=== PATIENT | male | born 1985 | race Caucasian/White ===

== ENCOUNTER 2023-05-10 20:31 | Emergency (ER) | payer OTHER, SELFPAY ==
[2023-05-10 20:32] VITALS: BP 128/94; PULSE 98; RESP 16; TEMP 37.1; O2SAT 95
--- NOTE | 2023-05-10 20:33 | ED.SKABFB ---
HPI - Skin/Abscess/Foreign Bdy General Chief complaint: Skin/Abscess/Foreign Body Stated complaint: Skin/Abscess/Foreign Body Source: patient Mode of arrival: ambulatory Limitations: no limitations History of Present Illness HPI narrative: 37-year-old male a history of pain medication use, bipolar, hypertension presents to the ER with a 3 day history -- 4 cm painful swelling in front of the right ear. He had a similar swelling 3 years ago secondary to cellulitis / abscess which resolved with oral antibiotics. no fever or chills MD complaint: abscess/boil Onset (ago): day(s) ( started 3 days ago) Tetanus up to date: no Location: face Severity: moderate Quality: aching Pain Consistency: constant Relieving factors: none Exacerbating factors: none Associated symptoms: denies other symptoms Treatments prior to arrival: none Related Data Home Medications Medication Instructions Recorded Confirmed buprenorphine 8 mg-naloxone 2 mg 1 tablet sublingual TID 05/10/23 05/10/23 sublingual tablet buspirone 7.5 mg tablet 7.5 mg PO BID 05/10/23 05/10/23 lisinopril 10 mg tablet 10 mg PO DAILY 05/10/23 05/10/23 quetiapine 50 mg tablet 50 mg PO HS 05/10/23 05/10/23 Allergies Allergy/AdvReac Type Severity Reaction Status Date / Time Penicillins Allergy Unknown Verified 05/10/23 20:39 Review of Systems Review of Systems: All systems reviewed & are unremarkable except as noted in HPI and below Constitutional: Constitutional: Reports as per HPI and Reports no additional constitutional complaints Eyes: Eyes: Reports as per HPI and Reports no additional eye complaints ENT: Reports system reviewed and no additional complaints, except as documented and Reports as per HPI Cardiovascular: Cardiovascular: Reports as per HPI and Reports no additional cardiovascular complaints Respiratory: Respiratory: Reports as per HPI and Reports no additional respiratory complaints Gastrointestinal: Gastrointestinal: Reports as per HPI and Reports no additional gastrointestinal complaints Genitourinary: Genitourinary: Reports no additional male genitourinary complaints and Reports as per HPI Musculoskeletal: Musculoskeletal: Reports no additional musculoskeletal complaints and Reports as per HPI Integumentary/Breasts: Comments: 4 cm cutaneous swelling in front of the right ear. This is warm to touch and painful on palpation Neurologic: Reports system reviewed and no additional complaints, except as documented and Reports as per HPI Psychiatric: Psychiatric: Reports no additional psychiatric complaints and Reports as per HPI Endocrine: Endocrine: Reports no additional endocrine complaints and Reports as per HPI Hematologic/Lymphatic: Hematologic/Lymphatic: Reports no additional hematologic/lymphatic complaints and Reports as per HPI Allergic/Immunologic: Allergic/Immunologic: Reports no additional allergic/immunologic complaints and Reports as per HPI [facility] Past Medical History Medical History (Updated 05/10/23 @ 22:17 by Ehsan Escamilla MD) Bipolar 2 disorder Hypertension Exam Const: General: healthy appearing and no acute distress Nutritional Appearance: well nourished Orientation/consciousness: patient oriented x3 Limitations: no limitations HENMT: Head: normal to inspection Ears: external ears normal Face/Nose/Sinus: Normal external nose present Face and sinus: normal facial exam Mouth: Yes Normal oral and palatal mucosa present Throat: posterior oropharynx normal Eyes: Conjunctivae: conjunctivae normal Pupils: Equal, round and reactive pupils present EOM: EOMs intact bilaterally Direct Ophthalmoscopy: no photophobia Neck: Neck: normal visual inspection, no lymphadenopathy and no meningeal signs Chest: Chest palpation & inspection: normal inspection of the chest Resp: Effort & Inspection: normal respiratory effort Auscultation: clear to auscultation bilaterally Cardio: Rate: regular rate Rhythm: regular
[2023-05-10 21:54] LABS: Basophils Absolute Auto 0.04 K/mm3 (0.00-0.10); Basophils Percent Auto 0.5 % (0.0-1.0); Eosinophils Absolute Auto 0.15 K/mm3 (0.02-0.50); Eosinophils Percent Auto 1.8 % (1.0-6.0); Hematocrit 40.1 % (40.0-54.0); Hemoglobin 13.5 g/dL (14.0-18.0); Immature Granulocyte Absolute 0.02 K/mm3 (0.00-0.00); Immature Granulocyte Percent A 0.2 % (0.0-0.0); Lymphocytes Absolute Auto 2.69 K/mm3 (1.10-4.50); Lymphocytes Percent Auto 31.9 % (18.0-42.0); Mean Corpuscular HGB Conc 33.7 g/dL (32.0-36.0); Mean Corpuscular Hemoglobin 30.3 pg (27.0-31.0); Mean Corpuscular Volume 90.1 fL (78.0-102.0); Monocytes Absolute Auto 0.52 K/mm3 (0.10-0.90); Monocytes Percent Auto 6.2 % (2.0-11.0); Neutrophils Percent Auto 59.4 % (50.0-70.0); Platelet Count Result 261 K/mm3 (150-420); Red Blood Count 4.45 M/mm3 (4.70-6.10); Red Cell Distribution Width 12.1 % (11.6-14.4); White Blood Count 8.4 K/mm3 (4.8-10.8)
[2023-05-10 22:09] LABS: Alanine Aminotransferase 13 U/L (16-63); Albumin Level 3.7 g/dL (3.4-5.0); Alkaline Phosphatase 55 U/L (46-116); Anion Gap 10 mmol/L (8-16); Aspartate Amino Transferase 66 U/L (15-37); Bilirubin,Total 0.3 mg/dL (0.00-1.00); Blood Urea Nitrogen 26 mg/dL (7-18); Calcium 8.7 mg/dL (8.5-10.1); Carbon Dioxide 27 mmol/L (21-32); Chloride 104 mmol/L (98-108); Estimated CRCL calculation 108 ml/min; Estimated Glomerular Filt Rate > 60; Glucose 94 mg/dL (70-99); Osmolality Calculated 296 mOsm/kg (285-295); Potassium 3.8 mmol/L (3.5-5.1); Sodium 141 mmol/L (136-145); Total Protein 6.9 g/dL (6.4-8.2)
[2023-05-10] MEDS: CLINDAMYCIN HCL 150 MG CAP 300 MG PO (22:25)
[2023-05-10 22:28] VITALS: BP 124/86; PULSE 66; RESP 16; TEMP 36.6; O2SAT 96
== END 2023-05-10 22:28 | disposition home or self-care (01) ==
PROVIDERS: Emergency Provider Internal Medicine Critical Care Medicine
DX: L03.211 Cellulitis of face (principal); F31.9 Bipolar disorder, unspecified; I10 Essential (primary) hypertension; Z79.899 Other long term (current) drug therapy
CPT/HCPCS: 36415; 80053; 85025; 99283; A9270

== ENCOUNTER 2023-05-29 07:31 | Emergency (ER) | payer OTHER, SELFPAY ==
--- NOTE | ~2023-05-29 | CT_ITS ---
EXAMINATION: CT brain wo con DATE: 05/29/2023 08:06 INDICATION: 2 episodes of seizure TECHNIQUE: Computed tomography (CT) of the head was performed without intravenous contrast. Sagittal and coronal reconstructions were performed. The mA was adjusted according to patient size. Iterative reconstruction technique was employed. The dose-length product was 605.33 mGy-cm. COMPARISON: None FINDINGS: No acute intracranial hemorrhage, acute infarction or abnormal extra axial fluid collection. Ventricl es are normal and symmetric. No mass/mass effect. The orbits, paranasal sinuses and mastoid air cells are normal. IMPRESSION: 1. Normal head CT. Reviewed, dictated and finalized at location A. IMPRESSION: 1. Normal head CT.
--- NOTE | 2023-05-29 07:33 | ED.SEIZURE ---
HPI - Seizure General Chief Complaint: Seizure Stated Complaint: seizure Time Seen by Provider: 05/29/23 07:32 Source: patient Mode of arrival: ambulatory Limitations: no limitations History of Present Illness HPI Narrative: 38 year old male presents to the Emergency Department complaining of seizure. Patient states last night he had an episode where he does not remember for about 5 minutes. States his stated he tensed up and had some shaking. He states he had another similar episode this morning. States he has a frontal headache and some blurry vision. He denies any incontinence. Denies biting tongue or any other injury. Denies any history of seizures. Denies any alcohol or drug use. History of substance abuse in past, but has not been taking Suboxone since October. Denies chest pain, shortness of breath, nausea, vomiting, diarrhea, fever, cough, congestion. 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 employment, either self-employed or otherwise?: No Related Data Home Medications Medication Instructions Recorded Confirmed lisinopril 10 mg tablet 10 mg PO DAILY 05/10/23 05/29/23 quetiapine 50 mg tablet 50 mg PO HS 05/10/23 05/29/23 Allergies Allergy/AdvReac Type Severity Reaction Status Date / Time Penicillins Allergy Unknown Verified 05/29/23 07:33 Review of Systems Review of Systems: All systems reviewed & are unremarkable except as noted in HPI and below Constitutional: Constitutional: Reports as per HPI, Reports no additional constitutional complaints, Denies chills, Denies fatigue, Denies fever(s) and Denies weakness Eyes: Eyes: Reports as per HPI and Reports change in vision Comments: some blurry vision ENT: Reports system reviewed and no additional complaints, except as documented Cardiovascular: Cardiovascular: Reports as per HPI and Reports no additional cardiovascular complaints Respiratory: Respiratory: Reports as per HPI and Reports no additional respiratory complaints Gastrointestinal: Gastrointestinal: Reports as per HPI and Reports no additional gastrointestinal complaints Genitourinary: Genitourinary: Reports no additional male genitourinary complaints Musculoskeletal: Musculoskeletal: Reports no additional musculoskeletal complaints Integumentary/Breasts: Skin/Breast: Reports system reviewed and no additional complaints, except as docu Neurologic: Reports system reviewed and no additional complaints, except as documented, Reports as per HPI and Reports headache(s) Psychiatric: Psychiatric: Reports no additional psychiatric complaints Endocrine: Endocrine: Reports no additional endocrine complaints Hematologic/Lymphatic: Hematologic/Lymphatic: Reports no additional hematologic/lymphatic complaints Allergic/Immunologic: Allergic/Immunologic: Reports no additional allergic/immunologic complaints PMFSH Past Medical History Medical History Bipolar 2 disorder Hypertension Exam Const: General: healthy appearing Nutritional Appearance: well nourished Orientation/consciousness: patient oriented x3 Limitations: no limitations HENMT: Head: normal to inspection Ears: external ears normal Face/Nose/Sinus: Normal external nose present Face and sinus: normal facial exam Mouth: Yes Normal oral and palatal mucosa present Teeth and gingiva: dentition normal Eyes: Conjunctivae: conjunctivae normal Pupils: Equal, round and reactive pupils present EOM: EOMs intact bilaterally Direct Ophthalmoscopy: no photophobia Neck: Neck: normal visual inspection and no meningeal signs Chest: Chest palpation & inspection:
[2023-05-29 07:34] VITALS: BP 146/85; PULSE 98; RESP 17; TEMP 36.9; O2SAT 97
[2023-05-29 08:00] VITALS: BP 141/89; PULSE 91; RESP 17; O2SAT 95
[2023-05-29 08:00] LABS: Appearance Urine Clear (Clear); Basophils Absolute Auto 0.06 K/mm3 (0.00-0.10); Basophils Percent Auto 0.8 % (0.0-1.0); Bilirubin Urine Negative (Negative); Blood Urine Negative (Negative); Color Urine Yellow (Yellow); Eosinophils Absolute Auto 0.25 K/mm3 (0.02-0.50); Eosinophils Percent Auto 3.4 % (1.0-6.0); Glucose Urine UA Negative (Negative); Hematocrit 45.3 % (40.0-54.0); Hemoglobin 14.9 g/dL (14.0-18.0); Immature Granulocyte Absolute 0.02 K/mm3 (0.00-0.00); Immature Granulocyte Percent A 0.3 % (0.0-0.0); Ketones Urine 1+ (Negative); Leukocyte Esterase Ur Negative (Negative); Lymphocytes Percent Auto 40.2 % (18.0-42.0); Mean Corpuscular HGB Conc 32.9 g/dL (32.0-36.0); Mean Corpuscular Hemoglobin 31.2 pg (27.0-31.0); Mean Corpuscular Volume 94.8 fL (78.0-102.0); Mean Platelet Volume 8.9 fl (8.7-11.0); Monocytes Absolute Auto 0.56 K/mm3 (0.10-0.90); Monocytes Percent Auto 7.5 % (2.0-11.0); Neutrophils Absolute Auto 3.6 K/mm3 (1.7-7.2); Neutrophils Percent Auto 47.8 % (50.0-70.0); Nitrate Urine Negative (Negative); Platelet Count Result 297 K/mm3 (150-420); Protein Urine Negative (Negative); Red Blood Count 4.78 M/mm3 (4.70-6.10); Red Cell Distribution Width 13.3 % (11.6-14.4); Specific Grav Ur 1.025 (1.010-1.020); Urobilinogen Urine 0.2 mg/dL (0.2-1.0); White Blood Count 7.5 K/mm3 (4.8-10.8)
[2023-05-29 08:07] LABS: Add Urine Microscopic? YES; Bacteria Urine Trace /hpf; Mucus Urine Moderate /lpf; RBC Urine None seen /hpf (0-2); WBC Urine 0-3 /hpf (0-3)
[2023-05-29 08:13] LABS: Amphetamine Screen Urine Negative (Negative); Barbiturate Screen Urine Negative (Negative); Benzodiazepines Screen Urine Negative (Negative); Cannabinoid Screen Urine Negative (Negative); Cocaine Screen Urine Positive (Negative); Methadone Screen Urine Negative (Negative); Opiate Screen Urine Negative (Negative); Phencyclidine Screen Urine Negative (Negative)
[2023-05-29 08:17] LABS: Alanine Aminotransferase 20 U/L (16-63); Albumin Level 3.5 g/dL (3.4-5.0); Alkaline Phosphatase 59 U/L (46-116); Anion Gap 9 mmol/L (8-16); Aspartate Amino Transferase 14 U/L (15-37); Bilirubin,Total 0.4 mg/dL (0.00-1.00); Blood Urea Nitrogen 13 mg/dL (7-18); Calcium 8.7 mg/dL (8.5-10.1); Carbon Dioxide 30 mmol/L (21-32); Chloride 102 mmol/L (98-108); Creatine Kinase 137 U/L (39-308); Estimated Glomerular Filt Rate > 60; Glucose 154 mg/dL (70-99); Osmolality Calculated 295 mOsm/kg (285-295); Potassium 3.6 mmol/L (3.5-5.1); Sodium 141 mmol/L (136-145); Total Protein 6.8 g/dL (6.4-8.2)
[2023-05-29 08:22] LABS: Lactic Acid Reflex 1.7 mmol/L (0.4-2.0)
[2023-05-29 08:30] VITALS: BP 128/73; PULSE 90; RESP 17; O2SAT 95
[2023-05-29 09:00] VITALS: BP 136/74; PULSE 84; RESP 17; O2SAT 95
[2023-05-29 09:16] VITALS: BP 125/72; PULSE 90; RESP 17; TEMP 36.9; O2SAT 95
== END 2023-05-29 09:16 | disposition home or self-care (01) ==
PROVIDERS: Emergency Provider Emergency Medicine
DX: R56.9 Unspecified convulsions (principal); F14.10 Cocaine abuse, uncomplicated; I10 Essential (primary) hypertension
CPT/HCPCS: 36415; 70450; 80053; 80307; 81001; 82550; 83605; 83735; 85025; 99284

== ENCOUNTER 2024-01-02 06:33 | Emergency (ER) | payer OTHER, SELFPAY ==
[2024-01-02 06:35] VITALS: BP 163/116; PULSE 109; RESP 20; TEMP 37.1; O2SAT 97
--- NOTE | 2024-01-02 06:56 | ECG_ITS ---
Measurements Intervals [place] Rate: 78 P: 2 HI: 107 QRS: 88 QRSD: 98 T: 12 QT: 362 QTc: 413 Interpretive Statements SINUS RHYTHM WITH SINUS ARRHYTHMIA WITH SHORT HI INTERVAL MINIMAL VOLTAGE CRITERIA FOR LVH, CONSIDER NORMAL VARIANT [MEETS CRITERIA IN ONE OF: R(aVL), S(V1), R(V5), R(V5/V6)+S(V1)] BORDERLINE ECG NO PREVIOUS ECG AVAILABLE FOR COMPARISON Electronically Signed On 01-02-2024 7:20:03 CDT by Kevan Carballo M.D.
--- NOTE | 2024-01-02 06:58 | ED.GENADULT ---
HPI - General Adult General Chief complaint: Nausea/Vomiting/Diarrhea <Emile Sykes DO - Last Filed: 01/02/24 07:04> Stated complaint: n/v/d <Emile Sykes DO - Last Filed: 01/02/24 07:04> Time Seen by Provider: 01/02/24 06:48 <Emile Sykes DO - Last Filed: 01/02/24 07:04> History of Present Illness HPI narrative: Fidel is a 38M with a PMH of HTN, bipolar and polysubstance abuse that presented to the ED with concerns of withdrawal and possible food poisoning. He was taking large amounts of fentanyl until 4 days ago, took cocaine yesterday and used MJ today. Since he stopped using opioids he has had worsening body aches, fatigue, but he claims he has not slept in 3 days. He also reports a lot of nausea and non-bloody vomit and watery diarrhea. He was in an inpatient treatment facility a few days ago and thinks he ate bad food. He reports the nausea, vomiting and diarrhea are not usually a part of his withdrawals. <Emile Sykes DO - Last Filed: 01/02/24 07:04> Related Data Home medications: Home Medications Medication Instructions Recorded Confirmed lisinopril 10 mg tablet 10 mg PO DAILY 05/10/23 01/02/24 quetiapine 50 mg tablet 50 mg PO HS 05/10/23 01/02/24 <Emile Sykes DO - Last Filed: 01/02/24 07:04> Allergies/adverse reactions: Allergies Allergy/AdvReac Type Severity Reaction Status Date / Time Penicillins Allergy Unknown Verified 05/29/23 07:33 <Emile Sykes DO - Last Filed: 01/02/24 07:04> Review of Systems Review of Systems: All systems reviewed & are unremarkable except as noted in HPI and below <Emile Sykes DO - Last Filed: 01/02/24 07:04> [facility] Past Medical History Medical History: Medical History Bipolar 2 disorder Hypertension <Emile Sykes DO - Last Filed: 01/02/24 07:04> Exam Const: General: cooperative, healthy appearing, comfortable, no acute distress, well developed, alert, awake and Physically active <Emile Sykes DO - Last Filed: 01/02/24 07:04> Orientation/consciousness: oriented to person, oriented to place and oriented to time <Emile Sykes DO - Last Filed: 01/02/24 07:04> HENMT: Head: normal to inspection, normocephalic and atraumatic <Emile Sykes DO - Last Filed: 01/02/24 07:04> Ears: hearing grossly normal bilaterally and external ears normal <Emile Sykes DO - Last Filed: 01/02/24 07:04> Face/Nose/Sinus: Normal external nose present <Emile Sykes DO - Last Filed: 01/02/24 07:04> Eyes: General: appearance normal, both eyes and all related structures <Emile Sykes DO - Last Filed: 01/02/24 07:04> Periorbital: periorbital findings normal <Emile Sykes DO - Last Filed: 01/02/24 07:04> Sclera: sclerae normal <Emile Sykes DO - Last Filed: 01/02/24 07:04> Pupils: Equal, round and reactive pupils present <Emile Sykes DO - Last Filed: 01/02/24 07:04> Neck: Neck: normal visual inspection <Emile Sykes DO - Last Filed: 01/02/24 07:04> Chest: Chest palpation & inspection: normal inspection of the chest <Emile Sykes DO - Last Filed: 01/02/24 07:04> Resp: Effort & Inspection: normal respiratory effort, able to speak in complete sentences and no respiratory distress <Emile Sykes DO - Last Filed: 01/02/24 07:04> Auscultation: clear to auscultation bilaterally <Emile Sykes DO - Last Filed: 01/02/24 07:04> Cardio: Jugular venous distension: no JVD <Emile Sykes, DO - Last Filed: 01/02/24 07:04> Rate: regular rate <Emile Sykes DO - Last Filed: 01/02/24 07:04> Rhythm: regular rhythm <Emile Sykes DO - Last Filed: 01/02/24 07:04> GI: Inspection: normal to inspection <Emile Sykes DO - Last Filed: 01/02/24 07:04> GI Palp: Yes Soft to palpation <Emile Sykes DO - Last Filed: 01/02/24 07:04> Auscultation: normal bowel sounds <
[2024-01-02 07:10] VITALS: BP 159/88; PULSE 88; RESP 18; TEMP 37; O2SAT 99
[2024-01-02] MEDS: LORazepam INJ (*CRX) 2 MG/ML VIAL 1 MG IV PUSH (07:12)
[2024-01-02] MEDS: SODIUM CHLORIDE 0.9% IV 1,000 ML 999 ML IV CONT (07:12)
[2024-01-02] MEDS: ONDANSETRON INJ 4 MG/2 ML VIAL IV PUSH (07:12)
[2024-01-02 07:13] LABS: Basophils Absolute Auto 0.03 K/mm3 (0.00-0.10); Basophils Percent Auto 0.3 % (0.0-1.0); Hemoglobin 14.8 g/dL (14.0-18.0); Immature Granulocyte Absolute 0.04 K/mm3 (0.00-0.00); Immature Granulocyte Percent A 0.3 % (0.0-0.0); Lymphocytes Absolute Auto 1.62 K/mm3 (1.10-4.50); Lymphocytes Percent Auto 14.1 % (18.0-42.0); Mean Corpuscular HGB Conc 31.5 g/dL (32-36); Mean Corpuscular Hemoglobin 28.6 pg (27.0-31.0); Mean Corpuscular Volume 90.7 fL (78.0-102.0); Mean Platelet Volume 8.8 fl (8.7-11.0); Monocytes Absolute Auto 0.63 K/mm3 (0.10-0.90); Monocytes Percent Auto 5.5 % (2.0-11.0); Neutrophils Absolute Auto 9.17 K/mm3 (1.70-7.20); Neutrophils Percent Auto 79.8 % (50.0-70.0); Platelet Count Result 457 K/mm3 (150-420); Red Blood Count 5.18 M/mm3 (4.70-6.10); Red Cell Distribution Width 13.3 % (11.6-14.4); White Blood Count 11.5 K/mm3 (4.8-10.8)
[2024-01-02 07:44] LABS: Alanine Aminotransferase 34 U/L (16-63); Alkaline Phosphatase 54 U/L (46-116); Anion Gap 11 mmol/L (4-12); Aspartate Amino Transferase 18 U/L (15-37); Bilirubin,Total 0.7 mg/dL (0.00-1.00); Blood Urea Nitrogen 21 mg/dL (7-18); Calcium 9.1 mg/dL (8.5-10.1); Carbon Dioxide 29 mmol/L (21-32); Chloride 103 mmol/L (98-108); Estimated CRCL calculation 88 ml/min; Estimated Glomerular Filt Rate > 60; Glucose 121 mg/dL (70-99); Lipase 36 U/L (16-77); Magnesium 1.9 mg/dL (1.8-2.4); Osmolality Calculated 300 mOsm/kg (285-295); Sodium 143 mmol/L (136-145); Total Protein 7.3 g/dL (6.4-8.2); Troponin I 5.2 ng/L (0.00-60.4)
[2024-01-02 07:45] LABS: Ethanol < 3 mg/dL (0-6)
[2024-01-02 07:45] LABS: Thyroid Stimulating Hormone 0.18 uIU/mL (0.36-3.74)
[2024-01-02 08:00] VITALS: BP 157/98; PULSE 73; RESP 18; O2SAT 98
[2024-01-02 08:37] LABS: Amphetamine Screen Urine Negative (Negative); Barbiturate Screen Urine Negative (Negative); Benzodiazepines Screen Urine Negative (Negative); Cannabinoid Screen Urine Positive (Negative); Cocaine Screen Urine Positive (Negative); Methadone Screen Urine Negative (Negative); Opiate Screen Urine Negative (Negative); Phencyclidine Screen Urine Negative (Negative)
[2024-01-02 08:41] LABS: Free T4 Free Thyroxine 0.74 ng/dL (0.76-1.46)
[2024-01-02] MEDS: ORPHENADRINE CITRATE 30 MG/ML 2 ML VIAL 60 MG IM (08:56)
[2024-01-02 09:05] VITALS: BP 144/69; PULSE 68; RESP 15; TEMP 36.9; O2SAT 100
== END 2024-01-02 09:05 | disposition home or self-care (01) ==
PROVIDERS: Family Medicine; Emergency Provider Emergency Medicine
DX: K52.9 Noninfective gastroenteritis and colitis, unspecified (principal); F19.10 Other psychoactive substance abuse, uncomplicated; I10 Essential (primary) hypertension; F31.81 Bipolar II disorder
CPT/HCPCS: 36415; 80053; 80307; 83690; 83735; 84439; 84443; 84484; 85025; 93005; 96361; 96372; 96374; 96375; 99284; J2060; J2360; J2405; J7030